=== PATIENT | male | born 1975 | race Caucasian/White ===

== ENCOUNTER → 2017-05-22 | Outpatient (CLI) | payer MEDICARE, OTHER ==
--- NOTE | 2017-05-23 17:27 | MR ---
EXAMINATION TYPE: MR brain wo/w con DATE OF EXAM: 05/22/2017 COMPARISON: 07/03/2014 HISTORY: Yearly Follow up For Tumor, Gadvist 10ml. Prior brain tumor in 1991. TECHNIQUE: Multiplanar, multisequence images of the brain and brainstem is performed without and with IV contras t, utilizing 10 mL intravenous Gadavist . FINDINGS: Occipital craniotomy defect is redemonstrated. 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 This is predominately T1 hypo intense and isointense and T2 heterogeneously hyperintense with areas of isointensity. There is no ev idence of transependymal edema. Stable encephalomalacia within the posterior midbrain near the tectum in comparison to the prior. This demonstrates no enhancement. Area of encephalomalacia within the right frontal lobe that is linear may be from prior intraventricu lar device. Other focal linear T2/IR hyperintensity foci predominantly within the garcia radiata alth ough some seen in the subcortical and periventricular white matter are stable from the prior exam of 2014. These do not demonstrate abnormal enhancement. Major intracranial flow voids are maintained. Left vertebral artery is dominant. Mild mucosal thicken ing is seen within the maxillary and ethmoid sinuses. Remaining paranasal sinuses and mastoid air zoe ls are well aerated. 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 Pituitary gland is unremark able. Bone marrow signal is also unremarkable. Thinning of the corpus callosum, greater posteriorly i s an unchanged finding from the prior. IMPRESSION: 1. 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 No other abnormal areas of intracranial enhancement. 2. Stable multifocal areas of encephalomalacia and nonspecific white matter change, nonenhancing. 3. Chronic thinning of the corpus callosum with no current evidence of hydrocephalus or transependyma l edema. 4. Low occipital craniotomy defect, unchanged. 5. Mild paranasal sinus mucosal thickening.
== END | disposition home or self-care (01) ==
LOC: RADMRIMAIN 14:21
PROVIDERS: ATTEND Neurological Surgery
DX: G93.89 Other specified disorders of brain (principal); R90.82 White matter disease, unspecified; R93.0 Abnormal findings on diagnostic imaging of skull and head, not elsewhere classified; Z98.890 Other specified postprocedural states
CPT/HCPCS: 70553; A9581

== ENCOUNTER → 2024-01-11 | Outpatient (CLI) | payer MEDICARE, OTHER ==
--- NOTE | 2024-01-12 08:55 | US ---
EXAMINATION TYPE: US groin RT DATE OF EXAM: 01/11/2024 COMPARISON: NONE CLINICAL INDICATION: Male, 48 years old with history of R10.31 RLQ PAIN; groin pain x 1.5 weeks, no i njury, no bulging TECHNIQUE: Soft tissue right groin scan with multiple grayscale ultrasound images. FINDINGS/IMPRESSION: Normal appearing soft tissue groin. No adenopathy identified. [facility], , 01/12/2024 8:53 AM
== END | disposition home or self-care (01) ==
LOC: RADUSWWP 15:48
PROVIDERS: ATTEND Family Medicine
DX: R10.31 Right lower quadrant pain (principal)